=== PATIENT | male | born 1985 | race Caucasian/White ===

== ENCOUNTER 2018-11-29 20:39 | Emergency (ER) | payer OTHER ==
[~2018-11-29] VITALS: Ht 170.2 cm; Wt 78.5 kg
[2018-11-29 20:49] VITALS: BP 146/75; Ht 170.2 cm; Wt 78.5 kg
== END 2018-11-30 | disposition left against medical advice (07) ==
LOC: ED 20:39
DX: Z53.21 Procedure and treatment not carried out due to patient leaving prior to being seen by health care provider (principal)